=== PATIENT | female | born 1975 | race African-American/Black ===

== ENCOUNTER 2017-08-17 18:14 | Inpatient (IN) | payer MEDICAID ==
[~2017-08-17] VITALS: Ht 167.6 cm; Wt 93.0 kg
[~2017-08-17 18:14] MED LIST: BACTRIM
[2017-08-17] MEDS ORDERED: SODIUM CHLORIDE 0.9% 1,000 ML IV ONE (19:54)
[2017-08-17] MEDS ORDERED: MORPHINE SULFATE 4 MG/ML CPJ (NOT FOR IM USE) IV STA (19:54)
[2017-08-17] MEDS ORDERED: ONDANSETRON HCL 4MG/2ML VIAL IV STA (19:54)
[2017-08-17 20:27] LABS: BASOPHILS % 0.6 % (0.0-2.0); EOSINOPHILS % 3.4 % (0.0-5.0); HEMATOCRIT. 36.2 % (36.0-48.0); HEMOGLOBIN. 12.5 g/dL (12.0-16.0); LYMPHOCYTES % 20.7 % (20.0-50.0); MEAN CORPUSCULAR HEMOGLOBIN 31.9 pg (28.0-32.0); MEAN CORPUSCULAR VOLUME 92.3 fL (81.0-99.0); MEAN PLATELET VOLUME 9.3 fl (7.4-10.4); MONOCYTES % 5.7 % (2.0-8.0); NEUTROPHILS % 69.6 % (40.0-76.0); PLATELET 248 x1000/uL (130-400); RED BLOOD CELL COUNT 3.92 mill/uL (4.2-5.4); RED CELL DISTRIBUTION WIDTH 13.4 % (11.6-14.6)
[2017-08-17 20:33] LABS: PROTHROMBIN TIME 10.7 sec (9.4-11.6)
[2017-08-17 20:41] LABS: AMMONIA < 10 uMol/L (<32)
[2017-08-17 20:42] LABS: CARBON DIOXIDE 26 mEq/L (21-32); CHLORIDE 104 mEq/L (98-107); LDL CHOLESTEROL 184 mg/dL (5-100)
[2017-08-17 20:43] LABS: HDL CHOLESTEROL 31 mg/dL (40-59)
[2017-08-17] MEDS ORDERED: MORPHINE SULFATE 10 MG/ML CPJ IV NR (21:00)
[2017-08-17 21:04] LABS: HCG SCREEN NEGATIVE
[2017-08-18] MEDS ORDERED: GLIP5TAB12 PO (05:20)
[2017-08-18] MEDS ORDERED: ASPI-1158 PO (05:20)
[2017-08-18] MEDS ORDERED: METF10002 PO (05:20)
[2017-08-18] MEDS ORDERED: ALBU2.5V13 INH (05:20)
[2017-08-18 05:22] VITALS: BP 91/62
[2017-08-18 05:23] VITALS: BP 91/62
[2017-08-18] MEDS ORDERED: MAGNESIUM/ALUMINUM HYDROXIDE/SIMETHICONE 30ML UDC PO PRN (05:30)
[2017-08-18] MEDS ORDERED: ACETAMINOPHEN 325MG TABLET PO PRN (05:30)
[2017-08-18] MEDS ORDERED: DOCUSATE SODIUM 100MG CAPSULE PO PRN (05:30)
[2017-08-18] MEDS ORDERED: DIPHENHYDRAMINE 50MG/ML VIAL IV PRN (05:30)
[2017-08-18] MEDS ORDERED: CLONIDINE 0.1MG TABLET PO PRN (05:30)
[2017-08-18] MEDS ORDERED: NA PHOS,M-B/NA PHOS,DI-BA ENEMA 118ML PR PRN (05:30)
[2017-08-18] MEDS ORDERED: IPRATROPIUM/ALBUTEROL 0.5-3(2.5)MG/3ML NEB INH PRN (05:30)
[2017-08-18] MEDS ORDERED: GUAIFENESIN 200MG/10ML SUGAR FREE UDC PO PRN (05:30)
[2017-08-18] MEDS ORDERED: HYDROCODONE/APAP 7.5/325MG 1 TAB TABLET PO PRN (05:30)
[2017-08-18] MEDS ORDERED: MORPHINE SULFATE 2 MG/ML CPJ (NOT FOR IM USE) IV PRN (05:30)
[2017-08-18] MEDS ORDERED: LORAZEPAM 0.5MG TABLET PO PRN (05:30)
[2017-08-18] MEDS ORDERED: ONDANSETRON HCL 4MG/2ML VIAL IV PRN (05:30)
[2017-08-18] MEDS ORDERED: HYDROMORPHONE HCL/PF 2MG/ML CPJ IV PRN (05:30)
[2017-08-18] MEDS ORDERED: DEXTROSE 50% WATER 50ML SYRINGE IV PRN (07:30)
[2017-08-18] MEDS: METFORMIN HCL 500MG TABLET PO SCH ×2 (07:36→17:13)
[2017-08-18] MEDS: BLOOD SUGAR DIAGNOSTIC STRIP TEST SCH ×4 (07:36→21:50)
[2017-08-18] MEDS: GLIPIZIDE 5MG TABLET PO SCH ×3 (07:36→17:13)
[2017-08-18 08:00] VITALS: BP 96/64
[2017-08-18] MEDS: ASPIRIN 81MG EC TABLET PO SCH (09:05)
[2017-08-18] MEDS: ENOXAPARIN 30MG/0.3ML SYR SUBCUT SCH ×2 (09:05→22:07)
[2017-08-18] MEDS: SODIUM CHLORIDE 0.45% 1,000 ML IV SCH ×2 (09:12→18:03)
[2017-08-18] MEDS: INSULIN LISPRO 100 UNITS/ML SUBCUT SCH ×4 (09:12→21:00)
[2017-08-18 09:17] LABS: CARBON DIOXIDE 26 mEq/L (21-32); CHLORIDE 106 mEq/L (98-107); TROPONIN I < 0.02 ng/mL (0.00-0.04)
[2017-08-18 12:00] VITALS: BP 93/60
[2017-08-18 15:45] VITALS: BP 101/70
[2017-08-18 20:00] VITALS: BP 97/61
[2017-08-19] VITALS: BP 107/70
[2017-08-19 04:00] VITALS: BP 106/65
[2017-08-19] MEDS: BLOOD SUGAR DIAGNOSTIC STRIP TEST SCH (05:44)
[2017-08-19] MEDS: GLIPIZIDE 5MG TABLET PO SCH ×2 (05:44→12:40)
[2017-08-19 06:30] LABS: BASOPHILS % 0.5 % (0.0-2.0); EOSINOPHILS % 3.7 % (0.0-5.0); HEMATOCRIT. 32.7 % (36.0-48.0); HEMOGLOBIN. 10.8 g/dL (12.0-16.0); LYMPHOCYTES % 27.4 % (20.0-50.0); MEAN CORPUSCULAR HEMOGLOBIN 30.8 pg (28.0-32.0); MEAN CORPUSCULAR VOLUME 93.1 fL (81.0-99.0); MEAN PLATELET VOLUME 9.5 fl (7.4-10.4); MONOCYTES % 4.9 % (2.0-8.0); NEUTROPHILS % 63.5 % (40.0-76.0); PLATELET 240 x1000/uL (130-400); RED BLOOD CELL COUNT 3.51 mill/uL (4.2-5.4); RED CELL DISTRIBUTION WIDTH 13.5 % (11.6-14.6)
[2017-08-19 07:10] LABS: CARBON DIOXIDE 23 mEq/L (21-32); CHLORIDE 111 mEq/L (98-107)
[2017-08-19 07:16] LABS: HDL CHOLESTEROL 27 mg/dL (40-59); LDL CHOLESTEROL 142 mg/dL (5-100); T4 FREE 0.96 ng/dL (0.76-1.46)
[2017-08-19 08:00] VITALS: BP 98/58
[2017-08-19] MEDS: SODIUM CHLORIDE 0.45% 1,000 ML IV SCH (08:02)
[2017-08-19] MEDS: INSULIN LISPRO 100 UNITS/ML SUBCUT SCH (08:10)
[2017-08-19] MEDS: METFORMIN HCL 500MG TABLET PO SCH (08:10)
[2017-08-19] MEDS: ENOXAPARIN 30MG/0.3ML SYR SUBCUT SCH (08:33)
[2017-08-19] MEDS: ASPIRIN 81MG EC TABLET PO SCH (09:00)
[2017-08-19 10:56] VITALS: BP 100/60
[2017-08-19 12:00] VITALS: BP 116/77
== END 2017-08-19 13:20 | disposition home or self-care (01) | DRG 52 ==
LOC: ER 18:14 → 7WST 08-18 01:49 → EDBEDREQ 08-18 02:50 → ENRESERV 08-18 03:02 → 7WST 08-19 07:50
PROVIDERS: ADMIT Hospitalist; ATTEND Hospitalist
DX: G93.40 Encephalopathy, unspecified (principal); I10 Essential (primary) hypertension; G43.909 Migraine, unspecified, not intractable, without status migrainosus; E11.9 Type 2 diabetes mellitus without complications; F17.210 Nicotine dependence, cigarettes, uncomplicated; E86.0 Dehydration; J45.909 Unspecified asthma, uncomplicated; Z79.82 Long term (current) use of aspirin; Z79.84 Long term (current) use of oral hypoglycemic drugs; Z79.899 Other long term (current) drug therapy
CPT/HCPCS: 36415; 70450; 80048; 80053; 80061; 82140; 82962; 84439; 84443; 84484; 84703; 85025; 85610; 93005; 96361; 96374; 96375; 99285; J1650; J1815; J2270; J2405; J7030

== ENCOUNTER 2018-04-09 15:42 | Emergency (ER) | payer MEDICAID ==
[~2018-04-09] VITALS: Ht 165.1 cm; Wt 93.8 kg
[~2018-04-09 15:42] MED LIST changes: +ALBU2.5V13 INH; +ASPI-1158 PO; -BACTRIM; +GLIP5TAB12 PO; +METF10004 PO
[2018-04-09 15:52] VITALS: BP 125/81
== END 2018-04-09 22:20 | disposition left against medical advice (07) ==
LOC: ER 17:12
DX: J32.9 Chronic sinusitis, unspecified (principal); E11.9 Type 2 diabetes mellitus without complications; J45.909 Unspecified asthma, uncomplicated; M32.9 Systemic lupus erythematosus, unspecified; F17.200 Nicotine dependence, unspecified, uncomplicated; Z90.49 Acquired absence of other specified parts of digestive tract
CPT/HCPCS: 99281

== ENCOUNTER 2019-09-16 01:10 | Inpatient (IN) | payer MEDICAID ==
[~2019-09-16] VITALS: Ht 165.1 cm; Wt 98.0 kg
[~2019-09-16 01:10] MED LIST changes: +METF-416 PO; -METF10004 PO
[2019-09-16] MEDS ORDERED: NITROGLYCERIN OINT 1GM/INCH UDPKT TD ONE (02:00)
[2019-09-16 02:33] LABS: EOSINOPHILS % 6.1 % (0.0-5.0); HEMATOCRIT. 34.6 % (36.0-48.0); HEMOGLOBIN. 11.5 g/dL (12.0-16.0); LYMPHOCYTES % 23.4 % (20.0-50.0); MEAN CORPUSCULAR HEMOGLOBIN 30.8 pg (28.0-32.0); MEAN CORPUSCULAR VOLUME 92.7 fL (81.0-99.0); MEAN PLATELET VOLUME 9.1 fl (7.4-10.4); MONOCYTES % 7.9 % (2.0-8.0); NEUTROPHILS % 61.6 % (40.0-76.0); PLATELET 287 x1000/uL (130-400); RED BLOOD CELL COUNT 3.74 mill/uL (4.2-5.4); RED CELL DISTRIBUTION WIDTH 14.5 % (11.6-14.6)
[2019-09-16 02:37] LABS: CHLORIDE 108 mEq/L (98-107)
[2019-09-16 02:46] LABS: CREATINE KINASE 101 IU/L (26-192)
[2019-09-16 02:47] LABS: *BARBITURATES SCREEN URINE NEGATIVE (NEGATIVE); *BENZODIAZEPINES SCREEN URINE NEGATIVE (NEGATIVE); *COCAINE SCREEN URINE NEGATIVE (NEGATIVE)
[2019-09-16 02:47] LABS: HCG SCREEN NEGATIVE
[2019-09-16 02:48] LABS: *AMPHETAMINES SCREEN URINE NEGATIVE (NEGATIVE); CANNABINOID URINE SCREEN NEGATIVE (NEGATIVE); METHADONE URINE SCREEN NEGATIVE (NEGATIVE); OPIATES URINE SCREEN NEGATIVE (NEGATIVE); PHENCYCLIDINE URINE SCREEN NEGATIVE (NEGATIVE)
[2019-09-16 03:03] LABS: PROTHROMBIN TIME 10.1 sec (9.6-11.0)
[2019-09-16] MEDS ORDERED: MORPHINE SULFATE 2 MG/ML CPJ (NOT FOR IM USE) IV ONE (04:15)
[2019-09-16] MEDS ORDERED: CLONIDINE 0.1MG TABLET PO PRN (09:15)
[2019-09-16] MEDS ORDERED: CLOPIDOGREL 75MG TABLET PO SCH (09:15)
[2019-09-16] MEDS ORDERED: MAGNESIUM/ALUMINUM HYDROXIDE/SIMETHICONE 30ML UDC PO PRN (09:15)
[2019-09-16] MEDS ORDERED: ACETAMINOPHEN 325MG TABLET PO PRN (09:15)
[2019-09-16] MEDS ORDERED: ONDANSETRON HCL 4MG/2ML INJ IV PRN (09:15)
[2019-09-16] MEDS ORDERED: DEXTROSE 50% WATER 50ML SYRINGE IV PRN (09:15)
[2019-09-16] MEDS ORDERED: ENOXAPARIN 40MG/0.4ML SYR SUBCUT SCH (09:15)
[2019-09-16] MEDS ORDERED: IPRATROPIUM/ALBUTEROL 0.5-3(2.5)MG/3ML NEB NEB PRN (09:15)
[2019-09-16] MEDS ORDERED: GUAIFENESIN 200MG/10ML SUGAR FREE UDC PO PRN (09:15)
[2019-09-16] MEDS ORDERED: LORAZEPAM 0.5MG TABLET PO PRN (09:15)
[2019-09-16] MEDS ORDERED: KETOROLAC 15MG/ML VIAL IV PRN (09:15)
[2019-09-16] MEDS ORDERED: NITROGLYCERIN 0.4MG TABLET SL SL PRN (09:15)
[2019-09-16] MEDS ORDERED: DOCUSATE SODIUM 100MG CAPSULE PO PRN (09:15)
[2019-09-16] MEDS ORDERED: CLOPIDOGREL 75MG TABLET PO NR (09:30)
[2019-09-16] MEDS ORDERED: ENOXAPARIN 40MG/0.4ML SYR SUBCUT NR (09:30)
[2019-09-16] MEDS: INSULIN LISPRO 100 UNITS/ML SUBCUT SCH ×4 (13:08→21:51)
[2019-09-16] MEDS: BLOOD SUGAR DIAGNOSTIC STRIP TEST SCH ×3 (13:08→21:46)
[2019-09-16 16:00] VITALS: BP 125/84
[2019-09-16] MEDS ORDERED: ASPI-986 PO (18:07)
[2019-09-16] MEDS ORDERED: CLOP75TA33 MT (18:07)
[2019-09-16 20:00] VITALS: BP 125/86
[2019-09-16] MEDS ORDERED: ATORVASTATIN CALCIUM 20MG TABLET PO SCH (21:00)
[2019-09-16] MEDS: METOPROLOL TARTRATE 25MG TABLET PO SCH (21:00)
[2019-09-16] MEDS: FAMOTIDINE 20MG TABLET PO SCH (21:00)
[2019-09-16] MEDS ORDERED: ZOLPIDEM TARTRATE 5MG TABLET PO PRN (21:00)
[2019-09-16] MEDS: ENOXAPARIN 30MG/0.3ML SYR SUBCUT SCH (21:46)
[2019-09-17] VITALS: BP 125/84
[2019-09-17 01:35] LABS: CREATINE KINASE 68 IU/L (26-192)
[2019-09-17 01:37] LABS: CREATINE KINASE MB FRACTION < 1.0 ng/mL (0.5-3.6)
[2019-09-17 04:00] VITALS: BP 119/79
[2019-09-17] MEDS: BLOOD SUGAR DIAGNOSTIC STRIP TEST SCH ×2 (06:23→11:45)
[2019-09-17] MEDS: INSULIN LISPRO 100 UNITS/ML SUBCUT SCH ×2 (06:56→11:57)
[2019-09-17 08:00] VITALS: BP 106/74
[2019-09-17] MEDS: ENOXAPARIN 30MG/0.3ML SYR SUBCUT SCH (08:25)
[2019-09-17] MEDS: METOPROLOL TARTRATE 25MG TABLET PO SCH (08:31)
[2019-09-17] MEDS: FAMOTIDINE 20MG TABLET PO SCH (08:31)
[2019-09-17] MEDS ORDERED: CLOPIDOGREL 75MG TABLET PO SCH (09:00)
[2019-09-17] MEDS ORDERED: ASPIRIN 81MG EC TABLET PO SCH (09:00)
[2019-09-17 11:15] VITALS: BP 106/74
== END 2019-09-17 12:00 | disposition home or self-care (01) | DRG 198 ==
LOC: ER 01:10 → 5WST 03:40 → EDBEDREQ 03:44 → EDBEDREQTM 03:44 → ENRESERV 14:47
PROVIDERS: ADMIT Internal Medicine; ATTEND Internal Medicine
DX: R07.89 Other chest pain (principal); I25.10 Atherosclerotic heart disease of native coronary artery without angina pectoris; E11.65 Type 2 diabetes mellitus with hyperglycemia; M32.9 Systemic lupus erythematosus, unspecified; I11.9 Hypertensive heart disease without heart failure; K30 Functional dyspepsia; K59.00 Constipation, unspecified; J45.909 Unspecified asthma, uncomplicated; R79.89 Other specified abnormal findings of blood chemistry; F41.9 Anxiety disorder, unspecified; G47.00 Insomnia, unspecified; Z95.5 Presence of coronary angioplasty implant and graft; I25.2 Old myocardial infarction; Z98.891 History of uterine scar from previous surgery; Z87.891 Personal history of nicotine dependence; Z79.82 Long term (current) use of aspirin; Z79.899 Other long term (current) drug therapy
CPT/HCPCS: 36415; 71045; 80061; 80305; 81025; 82550; 82553; 82962; 83036; 83880; 84484; 84703; 93005; 93970; 96372; 96374; 99285; J1650; J1815; J2270